=== PATIENT | female | born 1955 | race Caucasian/White ===

== ENCOUNTER → 2024-12-21 09:09 | Outpatient (REF) | payer MEDICARE, SELFPAY | LOC: HWRCS 09:09 | PROVIDERS: ATTENDING PHYSICIAN Student in an Organized Health Care Education/Training Program; FAMILY PHYSICIAN Physician Assistant Medical | DX: I35.1 Nonrheumatic aortic (valve) insufficiency (principal) | CPT/HCPCS: 93306 ==